=== PATIENT | male | born 1950 | race Caucasian/White ===

== ENCOUNTER → 2021-09-27 | Outpatient (CLI) | payer MEDICARE | END | disposition home or self-care (01) | LOC: SHCH 12:55 | PROVIDERS: ATTEND Internal Medicine Cardiovascular Disease | DX: I51.7 Cardiomegaly (principal); R42 Dizziness and giddiness; E78.5 Hyperlipidemia, unspecified; E66.9 Obesity, unspecified | CPT/HCPCS: 93306; 93356 ==

== ENCOUNTER → 2022-03-30 | Outpatient (CLI) | payer MEDICARE | END | disposition home or self-care (01) | LOC: SHCH 14:56 | PROVIDERS: ATTEND Internal Medicine Cardiovascular Disease | DX: I87.2 Venous insufficiency (chronic) (peripheral) (principal) | CPT/HCPCS: 93970 ==

== ENCOUNTER 2022-08-02 16:38 | Inpatient (IN) | payer MEDICARE ==
[~2022-08-02] VITALS: Ht 180.3 cm; Wt 97.2 kg
[2022-08-02 17:55] LABS: BASOPHILS % (AUTO) 0.5 % (0.0-5.0); EOSINOPHILS % (AUTO) 4.5 % (0.0-8.0); HEMATOCRIT 35.6 % (42-54); LYMPHOCYTES % (AUTO) 11.7 % (21.0-51.0); MEAN CORPUSCULAR HEMOGLOBIN 32.5 pg (27.0-33.0); MEAN CORPUSCULAR HGB CONC 34.6 g/dL (32.0-36.0); MEAN CORPUSCULAR VOLUME 93.9 fL (79-99); MONOCYTES % (AUTO) 10.3 % (3.0-13.0); NEUTROPHILS % (AUTO) 72.6 % (40.0-77.0); PLATELET COUNT (AUTO) 252 K/uL (130-400); RED BLOOD CELL COUNT(AUTO) 3.79 MIL/uL (4.50-6.20); RED CELL DISTRIBUTION WIDTH 12.5 % (11.0-15.5); WHITE BLOOD COUNT (AUTO) 8.3 K/uL (4.8-10.8)
[2022-08-02 18:11] LABS: INR 0.98 (0.85-1.15); PROTHROMBIN TIME 10.7 SEC (9.6-11.6)
[2022-08-02 18:12] LABS: PARTIAL THROMBOPLASTIN TIME 29.6 SEC (26.3-35.5)
[2022-08-02 18:13] LABS: ALBUMIN 3.5 g/dL (3.5-5.0); TOTAL PROTEIN, SERUM 7.6 g/dL (6.0-8.3)
[2022-08-02 18:18] LABS: B-TYPE NATRIURETIC PEPTIDE 67 pg/mL (0-100)
[2022-08-02] MEDS ORDERED: HEPARIN 5,000 UNIT VIAL ONE (18:27)
[2022-08-02] MEDS: HEPARIN 25,000 UNITS/250ML D5W 250 ML IV SCH (18:41)
[2022-08-02] MEDS ORDERED: LACTULOSE 20 GM/30 ML UDCUP PO PRN (19:30)
[2022-08-02] MEDS ORDERED: ACETAMINOPHEN 325 MG TAB PO PRN ×2 (19:30)
[2022-08-02] MEDS ORDERED: GUAIFENESIN-DM 200/20 MG 10 ML PO PRN (19:30)
[2022-08-02] MEDS ORDERED: ONDANSETRON 4MG INJ IV PRN (19:30)
[2022-08-02] MEDS ORDERED: DIPHENHYDRAMINE HCL 25 MG CAPSULE PO PRN (19:30)
[2022-08-02] MEDS ORDERED: MAG/ALUM/SIMETH 30 ML UDCUP PO PRN (19:30)
[2022-08-02] MEDS ORDERED: IOHEXOL 350 MG/ML 100ML INFUS..BTL IV ONE (22:18)
[2022-08-02] MEDS: FAMOTIDINE 20MG TAB PO SCH (22:21)
[2022-08-02] MEDS: MORPHINE 4 MG SYG IV PRN (23:24)
[2022-08-03 01:04] LABS: PROTHROMBIN TIME 10.9 SEC (9.6-11.6)
[2022-08-03 01:05] LABS: PARTIAL THROMBOPLASTIN TIME 27.4 SEC (26.3-35.5)
[2022-08-03 03:55] VITALS: BP 112/64
[2022-08-03] MEDS ORDERED: FISH1CAP50 PO (04:29)
[2022-08-03] MEDS ORDERED: [UNRECOGNIZED DRUG - CODE] PO (04:29)
[2022-08-03] MEDS ORDERED: RIVA20TA PO (04:29)
[2022-08-03 04:44] LABS: CREATININE 1.1 mg/dL (0.5-1.5); POTASSIUM 3.6 mmol/L (3.5-5.1)
[2022-08-03] MEDS ORDERED: HEPARIN 5,000 UNIT VIAL ONE (05:00)
[2022-08-03] MEDS: HEPARIN 25,000 UNITS/250ML D5W 250 ML IV SCH (05:17)
[2022-08-03] MEDS: MORPHINE 4 MG SYG IV PRN (05:22)
[2022-08-03 07:30] VITALS: BP 95/44
[2022-08-03] MEDS: FAMOTIDINE 20MG TAB PO SCH ×2 (09:18→19:49)
[2022-08-03] MEDS: ACETAMINOPHEN WITH CODEINE 1 TAB TAB PO PRN ×2 (09:47→19:50)
[2022-08-03 12:00] VITALS: BP 95/47
[2022-08-03 16:00] VITALS: BP 105/48
[2022-08-03 17:20] VITALS: BP 95/47
[2022-08-03 20:00] VITALS: BP 113/54
[2022-08-04] VITALS: BP 124/59
[2022-08-04] MEDS: MORPHINE 4 MG SYG IV PRN ×2 (03:36→09:32)
[2022-08-04 03:47] VITALS: BP 122/66
[2022-08-04 04:35] LABS: HEMATOCRIT 31.6 % (42-54); MEAN CORPUSCULAR HEMOGLOBIN 32.7 pg (27.0-33.0); MEAN CORPUSCULAR HGB CONC 34.5 g/dL (32.0-36.0); MEAN CORPUSCULAR VOLUME 94.9 fL (79-99); RED BLOOD CELL COUNT(AUTO) 3.33 MIL/uL (4.50-6.20); RED CELL DISTRIBUTION WIDTH 12.5 % (11.0-15.5); WHITE BLOOD COUNT (AUTO) 7.5 K/uL (4.8-10.8)
[2022-08-04 05:05] LABS: ALBUMIN 2.9 g/dL (3.5-5.0); CREATININE 1.1 mg/dL (0.5-1.5); POTASSIUM 3.8 mmol/L (3.5-5.1); TOTAL PROTEIN, SERUM 6.7 g/dL (6.0-8.3)
[2022-08-04 07:30] VITALS: BP 116/65
[2022-08-04] MEDS: FAMOTIDINE 20MG TAB PO SCH (09:10)
[2022-08-04 11:00] VITALS: BP 100/56
[2022-08-04] MEDS: PANTOPRAZOLE 40 MG TAB DR PO SCH (12:29)
[2022-08-04] MEDS: ACETAMINOPHEN WITH CODEINE 1 TAB TAB PO PRN (15:08)
[2022-08-04 16:00] VITALS: BP 116/60
[2022-08-04] MEDS: HEPARIN 25,000 UNITS/250ML D5W 250 ML IV SCH (16:11)
[2022-08-04 21:08] VITALS: BP 115/60
[2022-08-05] VITALS (7 sets, daily range): BP systolic 90–123; BP diastolic 46–69
[2022-08-05 04:44] LABS: BASOPHILS % (AUTO) 0.5 % (0.0-5.0); EOSINOPHILS % (AUTO) 5.5 % (0.0-8.0); LYMPHOCYTES % (AUTO) 13.4 % (21.0-51.0); MEAN CORPUSCULAR HEMOGLOBIN 31.9 pg (27.0-33.0); MEAN CORPUSCULAR HGB CONC 33.9 g/dL (32.0-36.0); MONOCYTES % (AUTO) 11.1 % (3.0-13.0); NEUTROPHILS % (AUTO) 69.1 % (40.0-77.0); PLATELET COUNT (AUTO) 295 K/uL (130-400); RED BLOOD CELL COUNT(AUTO) 3.51 MIL/uL (4.50-6.20); RED CELL DISTRIBUTION WIDTH 12.3 % (11.0-15.5); WHITE BLOOD COUNT (AUTO) 7.7 K/uL (4.8-10.8)
[2022-08-05 05:23] LABS: ALBUMIN 2.8 g/dL (3.5-5.0); CREATININE 1.1 mg/dL (0.5-1.5); POTASSIUM 3.6 mmol/L (3.5-5.1); TOTAL PROTEIN, SERUM 6.8 g/dL (6.0-8.3)
[2022-08-05] MEDS: PANTOPRAZOLE 40 MG TAB DR PO SCH (07:30)
[2022-08-05] MEDS: MORPHINE 4 MG SYG IV PRN ×3 (10:26→22:14)
[2022-08-05] MEDS: HEPARIN 25,000 UNITS/250ML D5W 250 ML IV SCH (13:00)
[2022-08-05] MEDS: ACETAMINOPHEN WITH CODEINE 1 TAB TAB PO PRN ×2 (13:01→23:17)
[2022-08-05] MEDS: ENOXAPARIN SODIUM 100 MG/1 ML SQ SCH (20:09)
[2022-08-06 05:08] VITALS: BP 109/60
[2022-08-06 05:27] LABS: BASOPHILS % (AUTO) 0.8 % (0.0-5.0); EOSINOPHILS % (AUTO) 8.2 % (0.0-8.0); HEMATOCRIT 33.1 % (42-54); MEAN CORPUSCULAR HEMOGLOBIN 31.9 pg (27.0-33.0); MEAN CORPUSCULAR HGB CONC 34.1 g/dL (32.0-36.0); MEAN CORPUSCULAR VOLUME 93.5 fL (79-99); MONOCYTES % (AUTO) 12.1 % (3.0-13.0); NEUTROPHILS % (AUTO) 58.7 % (40.0-77.0); PLATELET COUNT (AUTO) 308 K/uL (130-400); RED BLOOD CELL COUNT(AUTO) 3.54 MIL/uL (4.50-6.20); RED CELL DISTRIBUTION WIDTH 12.1 % (11.0-15.5); WHITE BLOOD COUNT (AUTO) 6.1 K/uL (4.8-10.8)
[2022-08-06 06:00] VITALS: BP 138/66
[2022-08-06] MEDS: PANTOPRAZOLE 40 MG TAB DR PO SCH (09:33)
[2022-08-06] MEDS: ENOXAPARIN SODIUM 100 MG/1 ML SQ SCH ×2 (09:33→20:40)
[2022-08-06 11:00] VITALS: BP 110/52
[2022-08-06] MEDS ORDERED: POLYETHYLENE GLYCOL 3350 17 GM POWD.PACK PO PRN (12:30)
[2022-08-06] MEDS ORDERED: DOCUSATE SODIUM 100 MG CAP PO SCH (12:30)
[2022-08-06] MEDS ORDERED: POLYETHYLENE GLYCOL 3350 17 GM POWD.PACK PO SCH (12:30)
[2022-08-06] MEDS: MORPHINE 4 MG SYG IV PRN (15:56)
[2022-08-06 16:00] VITALS: BP 133/64
[2022-08-06] MEDS: DOCUSATE SODIUM 100 MG CAP PO SCH (20:41)
[2022-08-06 21:33] VITALS: BP 101/48
[2022-08-07] VITALS (7 sets, daily range): BP systolic 98–123; BP diastolic 51–76
[2022-08-07 04:49] LABS: BASOPHILS % (AUTO) 0.7 % (0.0-5.0); EOSINOPHILS % (AUTO) 7.8 % (0.0-8.0); HEMATOCRIT 33.9 % (42-54); LYMPHOCYTES % (AUTO) 19.5 % (21.0-51.0); MEAN CORPUSCULAR HEMOGLOBIN 31.9 pg (27.0-33.0); MEAN CORPUSCULAR HGB CONC 33.9 g/dL (32.0-36.0); MEAN CORPUSCULAR VOLUME 94.2 fL (79-99); MONOCYTES % (AUTO) 11.2 % (3.0-13.0); NEUTROPHILS % (AUTO) 60.5 % (40.0-77.0); PLATELET COUNT (AUTO) 352 K/uL (130-400); RED CELL DISTRIBUTION WIDTH 12.1 % (11.0-15.5)
[2022-08-07 05:00] LABS: ALBUMIN 2.7 g/dL (3.5-5.0); CREATININE 1.2 mg/dL (0.5-1.5); MAGNESIUM 2.1 mg/dL (1.80-2.40); POTASSIUM 4.1 mmol/L (3.5-5.1); TOTAL PROTEIN, SERUM 6.6 g/dL (6.0-8.3)
[2022-08-07] MEDS: MORPHINE 4 MG SYG IV PRN ×2 (05:37→22:29)
[2022-08-07] MEDS: ENOXAPARIN SODIUM 100 MG/1 ML SQ SCH ×2 (08:46→20:20)
[2022-08-07] MEDS: PANTOPRAZOLE 40 MG TAB DR PO SCH (08:46)
[2022-08-07] MEDS: DOCUSATE SODIUM 100 MG CAP PO SCH ×2 (08:46→20:19)
[2022-08-08 03:10] VITALS: BP 114/66
[2022-08-08] MEDS ORDERED: MORPHINE 4 MG SYG IVP PRN (03:30)
[2022-08-08] MEDS: PANTOPRAZOLE 40 MG TAB DR PO SCH (06:39)
[2022-08-08 08:09] VITALS: BP 109/61
[2022-08-08] MEDS: DOCUSATE SODIUM 100 MG CAP PO SCH (08:22)
[2022-08-08] MEDS: ENOXAPARIN SODIUM 100 MG/1 ML SQ SCH (08:23)
[2022-08-08] MEDS ORDERED: RIVAROXABAN 15 MG TABLET ONE (09:26)
[2022-08-08] MEDS ORDERED: RIVAROXABAN 2.5 MG TABLET PO SCH ×3 (09:30→10:00)
[2022-08-08] MEDS ORDERED: RIVA20TA PO (09:48)
[2022-08-08] MEDS: RIVAROXABAN 2.5 MG TABLET ONE ×2 (10:11→10:24)
== END 2022-08-08 10:59 | disposition home or self-care (01) | DRG 300 ==
LOC: EDH 16:38 → EDHIP 19:07 → 4CH 08-03 03:35
PROVIDERS: ADMIT Hospitalist; ATTEND Hospitalist
DX: I82.413 Acute embolism and thrombosis of femoral vein, bilateral (principal); D68.59 Other primary thrombophilia; I87.1 Compression of vein; I82.433 Acute embolism and thrombosis of popliteal vein, bilateral; E78.00 Pure hypercholesterolemia, unspecified; Z86.718 Personal history of other venous thrombosis and embolism; Z91.199 Patient's noncompliance with other medical treatment and regimen due to unspecified reason; Z95.828 Presence of other vascular implants and grafts
CPT/HCPCS: 36415; 71270; 80048; 80053; 83735; 83880; 84484; 85025; 85027; 85610; 85730; 93005; 93970; G0378; J1644; J1650; J2270; J2405; Q9967

== ENCOUNTER → 2022-08-02 | Outpatient (CLI) | payer MEDICARE ==
[~2022-08-02] MED LIST: FISH1CAP50 PO; RIVA20TA PO; [UNRECOGNIZED DRUG - CODE] PO
== END | disposition home or self-care (01) ==
LOC: RAH 14:51
PROVIDERS: ATTEND Internal Medicine Cardiovascular Disease
DX: I82.403 Acute embolism and thrombosis of unspecified deep veins of lower extremity, bilateral (principal); R06.09 Other forms of dyspnea
CPT/HCPCS: 93970

== ENCOUNTER → 2022-11-08 | Outpatient (CLI) | payer MEDICARE | END | disposition home or self-care (01) | LOC: SHCH 07:35 | PROVIDERS: ATTEND Internal Medicine Cardiovascular Disease | DX: I82.531 Chronic embolism and thrombosis of right popliteal vein (principal); I82.511 Chronic embolism and thrombosis of right femoral vein; I87.2 Venous insufficiency (chronic) (peripheral); I82.412 Acute embolism and thrombosis of left femoral vein; I82.432 Acute embolism and thrombosis of left popliteal vein; R60.0 Localized edema | CPT/HCPCS: 93970 ==

== ENCOUNTER → 2022-12-02 | Outpatient (CLI) | payer MEDICARE | END | disposition home or self-care (01) | LOC: SHCH 10:49 | PROVIDERS: ATTEND Internal Medicine Cardiovascular Disease | DX: I51.7 Cardiomegaly (principal); I20.9 Angina pectoris, unspecified; I51.89 Other ill-defined heart diseases; R06.09 Other forms of dyspnea | CPT/HCPCS: 93306 ==

== ENCOUNTER → 2023-01-29 | Outpatient (CLI) | payer MEDICARE ==
[2023-01-29 16:37] LABS: ALBUMIN 3.9 g/dL (3.5-5.0); CREATININE 1.1 mg/dL (0.5-1.5); POTASSIUM 4.3 mmol/L (3.5-5.1); TOTAL PROTEIN, SERUM 7.2 g/dL (6.0-8.3)
== END | disposition home or self-care (01) ==
LOC: LAB 14:25
PROVIDERS: ATTEND Internal Medicine Cardiovascular Disease
DX: R06.02 Shortness of breath (principal)
CPT/HCPCS: 36415; 80053

== ENCOUNTER → 2023-02-02 | Outpatient (CLI) | payer MEDICARE ==
[~2023-02-02] MED LIST changes: +IOHEXOL 350 MG/ML 100ML INFUS..BTL IV ONE
== END | disposition home or self-care (01) ==
LOC: RAH 08:03
PROVIDERS: ATTEND Internal Medicine Cardiovascular Disease
DX: R06.02 Shortness of breath (principal)
CPT/HCPCS: 71270; Q9967